=== PATIENT | female | born 1970 | race Caucasian/White ===

== ENCOUNTER 2018-07-09 21:19 | Emergency (ER) | payer OTHER ==
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
[2018-07-09] MEDS ORDERED: Iodixanol* (CONTRAST) 320 MG/ML 100 ML SDV IV ONE (21:48)
[2018-07-09 22:04] LABS: ABS Basophils 0.1 10^3/ul (0-0.2); ABS Eosinophils 0.2 10^3/ul (0-0.6); ABS Lymphocytes 1.9 10^3/ul (1.0-4.8); ABS Monocytes 0.5 10^3/ul (0-0.8); ABS Neutrophils 4.3 10^3/ul (1.5-7.7); ABS Nucleated RBC 0 10^3/ul; Eosinophil % 3.5 %; Hematocrit 39 % (35-47); Hemoglobin 13.1 g/dl (12.0-16.0); Lymphocyte % 27.5 %; Mean Corpuscular HGB Conc 34 g/dl (31-36); Mean Corpuscular Hemoglobin 32 pg (27-31); Mean Corpuscular Volume 95 fL (80-97); Mean Platelet Volume 8.6 fL (7.4-10.4); Nucleated Red Blood Cells % 0; Platelet Count 339 10^3/ul (150-450); Red Blood Count 4.09 10^6/ul (4.00-5.40); Red Cell Distribution Width 13 % (10.5-15)
[2018-07-09 22:17] LABS: INR 0.95 (0.77-1.02)
[2018-07-09 22:19] LABS: Albumin 4.4 g/dL (3.2-5.2); Albumin/Globulin Ratio 1.7 (1-3); BUN/Creatinine Ratio 28.2 (8-20); Calcium 9.4 mg/dL (8.6-10.3); EGFR Non-African American 87.5 (>60); Globulin 2.6 g/dL (2-4); Potassium 3.7 mmol/L (3.5-5.0); Total Bilirubin 0.3 mg/dL (0.2-1.0)
[2018-07-09] MEDS ORDERED: Naproxen TAB* 250 MG PO ONE (23:15)
[2018-07-09 23:52] VITALS: BP 122/94
[2018-07-16 18:13] LABS: Factor V Leiden Mutation Negative (Negative)
== END 2018-07-09 23:54 | disposition home or self-care (01) ==
LOC: ED 21:19 → MERGE 21:19 → ED 23:54
DX: S99.911A Unspecified injury of right ankle, initial encounter (principal); S29.9XXA Unspecified injury of thorax, initial encounter; T14.8XXA Other injury of unspecified body region, initial encounter; V43.51XA Car driver injured in collision with sport utility vehicle in traffic accident, initial encounter; Y92.410 Unspecified street and highway as the place of occurrence of the external cause; I10 Essential (primary) hypertension; I49.3 Ventricular premature depolarization; Z83.2 Family history of diseases of the blood and blood-forming organs and certain disorders involving the immune mechanism
CPT/HCPCS: 29515; 36415; 71260; 74177; 80053; 81241; 83605; 84484; 85025; 85220; 85610; 93005; 96374; 99283; Q9967